=== PATIENT | female | born 1985 | race Hispanic/Latino ===

== ENCOUNTER → 2016-12-05 | Outpatient (CLI) | payer OTHER ==
--- NOTE | 2016-12-05 11:16 | ULT ---
ULTRASOUND THYROID: HISTORY: Thyroid nodule. COMPARISON: None. TECHNIQUE: Real-time sewell scale and color evaluation of the thyroid is performed with a linear ray transducer. FINDINGS: Background hepatic echotexture and vascularity is normal. Distance measures 0.24 cm AP dimension. The right lobe measures 4.6 x 2.7 x 2.1 cm. The left lobe measures 4.3 x 1.3 x 1.1 cm. Interpolar area right lobe is a 2.4 x 1.7 x 1.6 cm almost completely solid mass which is hyperechoic , wider than tall, at the lobular margin. No associated echogenic foci. IMPRESSION: TIRADS 4: Moderately suspicious. Fine needle aspiration of the dominant 2.4 x 1.7 x 1.6 cm almost completely solid hyperechoic wider than tall lobulated mass without associated echogenic foci. CODE T POS: LUIS
== END ==
LOC: ULT 09:00
PROVIDERS: ATTEND Obstetrics & Gynecology
DX: E04.1 Nontoxic single thyroid nodule (principal)
CPT/HCPCS: 76536

== ENCOUNTER 2016-12-07 16:30 | Inpatient (IN) | payer OTHER ==
--- NOTE | 2016-12-07 23:21 | HP ---
Planned date of surgery is 12/11/2016 HISTORY OF PRESENT ILLNESS: Ms. Pollock is a 31-year-old Latin-[place]oven[place] female, G1, P1 previous vagi nal delivery over 10 years ago, who had had onset of increasingly heavy menstrual periods. She was noted at that time to have a 4 cm anterior fundal uterine fibroid and underwent a robotic-assisted l aparoscopic myomectomy in 07/2016. At that time, she was noted to have a significant anemia preoper atively requiring some intraoperative blood transfusion and postop blood transfusion. The pathology at that time showed her to have an approximately 8 cm intramural fibroid with some degenerative ramirez nge. Postoperatively, she continued to have intermittent bleeding off and on and had been placed on Lyste da and oral contraceptives. She had a followup ultrasound that then showed her to have what appeare d to be about a 2.6 x 2.1 cm submucosal fibroid filling the lower uterine segment just above the end ocervical canal. She also had development of multiple other small fibroids throughout, the posterio r one and now other multiple ones in the fundus seen on ultrasound. Due to location of the submucos al fibroid in the lower uterine segment and just above the endocervical canal, I was very reluctant to proceed with a hysteroscopic resection. She did desire fertility, and therefore, has been referr ed to library technology instructor, Dr. Ulloa at [facility]. An MRI was ordered recently o n 12/05 showing her to have extensive leiomyoma of the uterus with intramural submucosal and subsero fallon fibroids with near obliteration of the endometrial cavity at the lower uterine segment. No adne xal masses were seen. Dr. Ulloa after review of the MRI did not feel that this patient was a hyst eroscopic resection candidate due to the fact she has multiple leiomyomas within the uterus and pote ntially frequent recurrence of fibroids. She does have significant anemia from the continued menorr hagia with recent hemoglobin of 5.7, hematocrit 21.6 as of 11/23/2016. She is clinically stable but is increasing her iron therapy to 3 times a day. In light of all these findings is now apparent th at the patient has agreed to proceed with definitive surgical therapy with robotic TLH removal of bi lateral fallopian tubes. Another concern she has noted development of a right thyroid nodule and re cently had ultrasound on 12/05 of the thyroid showing her to have a 2.4 x 1.7 x 1.6 cm almost comple tely solid mass there, which is worrisome that is moderately suspicious for a carcinoma. She has se en Dr. Cardona of ENT and he recommends to proceed with hysterectomy and then workup with biopsy after the hysterectomy procedure. PAST MEDICAL HISTORY: Negative. PAST SURGICAL HISTORY: Per HPI. SOCIAL HISTORY: Non-smoker, minimal alcohol use. She is . CURRENT MEDICATIONS: Anaprox, iron, Fergon 1 p.o. b.i.d. to t.i.d., Loestrin 120 mg daily. FAMILY HISTORY: Cousin with hysterectomy age 27. Breast cancer in an aunt. Father with diabetes, mother with coronary artery disease, sister with previous hysterectomy and severe endometriosis. ALLERGIES: AMOXICILLIN, PENICILLIN. PHYSICAL EXAMINATION: VITAL SIGNS: Blood pressure 110/60, pulse 88, respirations 18, height 60 inches. Weight 132 pounds . BMI 25.8. HEENT: Within normal limits. She has an approximately 2 cm right firm nodule in the right lobe of the thyroid noted. CHEST: Clear to auscultation. ABDOMEN: Soft, nontender, nondistended. Well-healed trocar sites noted. PELVIC: Vulva and vagina had no lesions. Cervix has no lesions, minimal vaginal bleeding noted. U terus approximately 8-week size. Adnexa nontender. ASSESSMENT: This is a 31-year-old Latin-[place]oven[place] female, G1, P1 with leiomyomatous uterine fibroid disease with previous and most recent fundal myoma with robotic myomectomy. The patient with recurr ence of fibroids with significant menorrhagia and anemia due to the chronic bleeding. Also, noted t o have some areas of pelvic endometriosis noted on recent surgery. MRI shows a submucosal fibroid w ithin the endometrial cavity just above the endocervical canal in the lower uterine segment with als o multiple other fibroids within the subserosal intermural sites. In light of this, the patient is not a candidate for further hysteroscopic myomectomy removal; and therefore, we will proceed with de finitive surgical therapy with Robotic TLH. The patient will be typed and crossed for 2 units and m ost likely we received some intraoperatively during the procedure. She also has a 2.5 cm right blayne d thyroid nodule which will be worked up further after hysterectomy procedure by Dr. Cardona of ENT.
[2016-12-08 16:14] VITALS: BMI 25.5
[2016-12-11] MEDS ORDERED: Midazolam HCl 2 mg/2 ml Vial ONE (06:48)
[2016-12-11] MEDS ORDERED: Fentanyl 100 MCG/2 ML VIAL ONE ×5 (06:48→10:55)
[2016-12-11] MEDS ORDERED: Bupivacaine HCl 0.5%/Epinephrine 1:200,000/PF 30 ml Vial ONE (07:04)
[2016-12-11] MEDS ORDERED: Clindamycin/D5W 900 mg/50 ml Premix Bag ONE (07:20)
[2016-12-11] MEDS ORDERED: Levofloxacin 500 mg/D5W 100 ml Premix Bag ONE (07:21)
[2016-12-11] MEDS ORDERED: Ketorolac Tromethamine 30 MG/ML VIAL ONE (07:38)
[2016-12-11] MEDS ORDERED: Glycopyrrolate 0.2 MG/ML 5 ML SYRINGE ONE (07:38)
[2016-12-11] MEDS ORDERED: Ondansetron HCl/PF 4 MG/2 ML Vial ONE (07:38)
[2016-12-11] MEDS ORDERED: Lidocaine 2% PF 10 ML AMP (For Epidural Use) ONE (07:38)
[2016-12-11] MEDS ORDERED: Propofol 200 MG/20 ML VIAL ONE (07:38)
[2016-12-11] MEDS ORDERED: Promethazine HCl 25 MG/ML VIAL IM PRN ×2 (09:39→11:50)
[2016-12-11] MEDS ORDERED: Ondansetron HCl/PF 4 MG/2 ML Vial IVP PRN ×2 (09:39→11:50)
[2016-12-11] MEDS ORDERED: Promethazine HCl 25 MG/ML VIAL SLOW IVP PRN (09:39)
[2016-12-11] MEDS ORDERED: Promethazine HCl 25 MG/ML VIAL ONE (10:20)
[2016-12-11] MEDS ORDERED: Bisacodyl 10 MG SUPP PR PRN (11:50)
[2016-12-11] MEDS ORDERED: traMADol HCl 50 MG TAB PO PRN (11:50)
[2016-12-11] MEDS ORDERED: diphenhydrAMINE HCl 25 MG CAP PO PRN (11:50)
[2016-12-11] MEDS ORDERED: Ketorolac Tromethamine 30 MG/ML VIAL IVP SCH (12:00)
[2016-12-11] MEDS: Simethicone Chewable 80 MG TAB PO PRN ×2 (12:44→21:55)
--- NOTE | 2016-12-11 14:34 | OP ---
PREOPERATIVE DIAGNOSES: 1. A 31-year-old female with symptomatic uterine fibroids with menorrhagia and signi ficant anemia. 2. Previous myomectomy with unresolved issues with menorrhagia with pelvic endometriosis noted. POSTOPERATIVE DIAGNOSES: 1. A 31-year-old female with symptomatic uterine fibroids with menorrhagia and sigin ficant anemia. 2. Previous myomectomy with unresolved issues with menorrhagia with pelvic endometriosis noted. PROCEDURES PERFORMED: 1. Robotic total laparoscopic hysterectomy, bilateral salpingectomy. 2. Ablation of endometriotic implants in the posterior cul-de-sac and pelvic sidewalls. SURGEON: Tatiana Rubin M.D. DIESEL ENGINE ASSEMBLER: Akhil Schmidt M.D. ANESTHESIA: General endotracheal. ESTIMATED BLOOD LOSS: 50 mL. COMPLICATIONS: None. COUNTS: Correct x2. ANTIBIOTICS: Levaquin and clindamycin per SCIP protocol. PATHOLOGY: Uterus, cervix, bilateral tubal segments, bilateral fallopian tubes. FINDINGS: 1. Filmy adhesions overlying the anterior uterus from previous myomectomy noted status post adhesio lysis. 2. Normal bilateral ovaries noted. 3. Scattered powder burn on endometriotic implants, mostly in the posterior cul-de-sac and few on t he pelvic sidewalls in uterosacral ligaments, status post ablation. 4. Clear urine present in Og catheter post-procedure. 5. Bilateral ureteral peristalsis visualized post procedure. DISPOSITION: To the recovery room stable. DESCRIPTION OF OPERATIVE PROCEDURE: The patient previously received informed consent in regards to surgery. She was taken back to the operating room where she received a general endotracheal anesthe tic agent without complications. She was then placed in the dorsal lithotomy position with the use of Chu stirrups. She was prepped and draped in usual sterile fashion. Og catheter was placed. At this time, a sidearm speculum was placed in the vagina. Anterior lip of cervix grasped with si ngle tooth tenaculum. Uterus sounded to 8 cm. A size 8 cm JAZLYN uterine manipulator with 4.0 cm cer vical cup was placed. Tenaculum and speculum were removed. Attention was then turned to the abdome n where perspective trocar sites were infiltrated with 0.5% Marcaine with epinephrine. A 12 mm infr aumbilical incision was made. Veress needle was entered into the abdominal cavity. Peritoneal pres sure was noted to be less than 5 mm. The abdomen was insufflated to patient pressure of 15, approxi mately 4.5 liters of carbon dioxide gas. Veress needle was then removed and a size 12 mm trocar was placed through the infraumbilical incision. Additional bilateral lower quadrant 8 mm trocars were placed under laparoscopic guidance along with right upper quadrant 11 mm trocar. The robot was then docked in usual fashion. The patient then placed in deep Trendelenburg prior to this. Once the ro bot had been docked, I proceeded to carry out the procedure from the robotic operative console with my assistance remained at the bedside. Uterus was elevated from the pelvis. The left fallopian tub e was grasped by my senior it assistant at the fimbria and a defect was made in the mesosalpinx with the monop olar scissors underneath the mesosalpinx. The left fallopian tube was then removed. Hemostasis was assured with bipolar fenestrated cautery on the pedicle sites. The left uterine ovarian ligament w as then coagulated with bipolar fenestrated device and transected. Serial coagulation of the broad ligament, hugging close to the uterus was carried out with the bipolar fenestrated device with excis ion with monopolar scissors until the left round ligament was reached. It was coagulated and transe cted in similar fashion. The anterior leaf of the broad ligament was entered and the vesicouterine peritoneum was dissected in a layering technique. Dissecting the bladder atraumatically past the ce rvical vaginal cuff, which was readily seen . The right uterine vessels were skeletonized and coagulated in the internal cervical os region. This was repeated on the right side of the uterus in similar fashion with the right fallopian tube b eing excised and removed in the right upper quadrant trocar senior it assistant site. The right uteroovarian ligament was coagulated and transected. Serial coagulation and the broad ligament was carried out u ntil the right round ligament was reached again being coagulated and transected. Again, the anterio r leaf of the broad ligament being entered and the vesicouterine peritoneum incised developing a edmund dder flap in a layering technique dropping this bladder atraumatically past the cervical vaginal ang le. Again, the right uterine vessels were skeletonized. At this time, a posterior colpotomy was th en carried out beginning from 6 to 3 and 6 to 9 o'clock fashion. Then the anterior colpotomy was ca rried out from 12 to 3 and 12 to 9 coagulating the uterine vessels medially as this proceeded for he mostasis. The uterus was then brought into the vaginal vault by the senior it assistant and the vaginal cuff was then coagulated any remaining active bleeding sites. A Stratafix suture was then brought up thr ough the right upper quadrant by my senior it assistant and then I proceeded to close the vaginal cuff startin g from the right vaginal angle towards the left vaginal angle and back towards the midline. A full- thickness closure with Stratafix suture. Hemostasis was confirmed. The cuff was elevated at this t jose with the suture and the posterior cul-de-sac endometriotic implants were then coagulated with bi polar fenestrated and also pelvic sidewalls 2 areas were coagulated and these were noted to be away from the ureter . Once this was accomplished, the pelvis again was irrigated and suctioned. H emostasis was confirmed. The suture needle was removed through the right upper quadrant port. Hemo stasis along the suture pedicle line was confirmed to be hemostatic. The bladder was draining clear urine. The excess carbon dioxide gas was then released, pedicle sites again remained hemostatic. The robot was undocked. Trocars were removed. A deep stitch of 0 Vicryl in a [id number] fashi on was placed in the fascial defect in the umbilicus region. Remainder of the trocar sites were niharika sed with 4-0 Monocryl subcuticular with Dermabond. There was no active bleeding from the vaginal cu ff noted vaginally. Clear urine was draining from the Og catheter. The patient was awakened fro m anesthesia and transferred to the recovery room in stable condition.
[2016-12-11] MEDS: Acetaminophen 1,000 MG in Premix Bag 1 BAG IVPB SCH ×2 (17:02→18:34)
[2016-12-11] MEDS: Lactated Ringer's 1,000 ML IV SCH ×2 (18:34→21:57)
[2016-12-11] MEDS: Ketorolac Tromethamine 30 MG/ML VIAL IVP SCH ×2 (18:41→20:59)
[2016-12-11] MEDS ORDERED: Fentanyl 5000 MCG/250 ML CADD IV PRN (20:32)
[2016-12-11] MEDS ORDERED: Naloxone HCl 0.4 mg/ml Vial IV PRN (20:32)
[2016-12-12] MEDS: Acetaminophen 1,000 MG in Premix Bag 1 BAG IVPB SCH ×3 (00:31→11:16)
[2016-12-12] MEDS: Ketorolac Tromethamine 30 MG/ML VIAL IVP SCH ×2 (03:39→09:38)
[2016-12-12 05:27] LABS: Hematocrit 20.3 % (36.0-47.0); Mean Platelet Volume 5.4 fL (7.4-10.4); Red Blood Cell (RBC) Count 3.43 mill/uL (4.20-5.40)
[2016-12-12] MEDS: Lactated Ringer's 1,000 ML IV SCH ×2 (06:18→11:15)
[2016-12-12] MEDS ORDERED: HYDROcodone/Acetaminophen 10/325 mg Tablet PO PRN ×2 (11:04)
[2016-12-12] MEDS ORDERED: Fentanyl 100 MCG/2 ML VIAL SLOW IVP PRN (11:05)
[2016-12-12 11:30] VITALS: BP 104/59; TEMP 98.4
[2016-12-12] MEDS: Simethicone Chewable 80 MG TAB PO PRN (13:33)
[2016-12-12] MEDS: traMADol HCl 50 MG TAB PO PRN ×2 (13:33→15:28)
--- NOTE | 2016-12-13 09:47 | DIS ---
DIAGNOSES: 1. Uterine fibroids. 2. Intractable menorrhagia due to fibroids. 3. 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 PROCEDURE PERFORMED: 1. Robotic total laparoscopic hysterectomy and bilateral salpingectomy 2. Transfusion 1 unit of packed red blood cells. SUMMARY OF HOSPITAL COURSE: Ms. Pollock is a 31-year-old female with previous parous 1 who initially desired preservation of fertility. She underwent a robotic myomectomy for large 8 c m uterine fibroid that was felt causing continued menorrhagia in 08/05/2016. The patient continued to have recurrent menorrhagia issues despite hormonal therapy, continued to be severely anemic with hemoglobins in the 5-6 range. She had an MRI of the uterus showing her to have a submucosal fibroid near the endocervical canal lower uterine segment and also multiple small fibroids throughout and w ith consultation Reproductive Endocrinology, Dr. Calle also felt that myomectomies for this wo uld be difficult and also was not indicated due to the multiple fibroid disease in this patient. Anny prater therefore underwent definitive surgical therapy with a robotic total laparoscopic hysterectomy and bilateral salpingectomy on 12/11/2016. Postoperatively, the patient did well. She did have a ricky tocrit of 20% on postop day #1 and did receive 1 unit of packed red cells to have her hemoglobin to be 7.7 and her hematocrit 26% post-transfusion. She had no orthostatic symptoms. Her vital signs w ere stable. There was no tachycardia or hypotension noted. Her baseline hemoglobin prior to surger y was 6.8. Pathology showed uterine leiomyoma and no other abnormalities noted. She was discharged the afternoon of postop day #1 after ambulating, voiding and tolerating regular diet. DISCHARGE MEDICATIONS: Ruth 10 mg/325 one q.4 hours and [id number] ibuprofen as directed. C ontinue iron therapy 325 mg, ferrous sulfate b.i.d. She has a followup 2 and 6 weeks postop. She will also have addressed in her postop period a 2.5 cm right thyroid nodule which she has been seen by Dr. Cardona and will undergo FNA biopsy during her postoperative recovery.
[2016-12-16] MEDS ORDERED: Ibuprofen 800 MG TAB PO SCH (21:00)
== END 2016-12-12 15:48 | disposition home or self-care (01) | DRG 743 ==
LOC: SURG A 12-11 05:50 → 3SE 12-11 10:58 → EEVIPCON 12-11 16:30
PROVIDERS: ADMIT Obstetrics & Gynecology; ATTEND Obstetrics & Gynecology
PROC: 0UT94ZZ Resection of Uterus, Percutaneous Endoscopic Approach (ICD-10-PCS; principal; 2016-12-11)
PROC: 0UB74ZZ Excision of Bilateral Fallopian Tubes, Percutaneous Endoscopic Approach (ICD-10-PCS; 2016-12-11)
PROC: 8E0W4CZ Robotic Assisted Procedure of Trunk Region, Percutaneous Endoscopic Approach (ICD-10-PCS; 2016-12-11)
PROC: 30233N1 Transfusion of Nonautologous Red Blood Cells into Peripheral Vein, Percutaneous Approach (ICD-10-PCS; 2016-12-12)
DX: D25.1 Intramural leiomyoma of uterus (principal); D50.0 Iron deficiency anemia secondary to blood loss (chronic); N92.1 Excessive and frequent menstruation with irregular cycle
CPT/HCPCS: 36415; 36430; 84702; 85027; 86850; 86900; 86901; 88307; A4216; J0131; J0670; J1885; J1956; J2001; J2250; J2270; J2405; J2550; J2704; J3010; J3490; P9016

== ENCOUNTER 2018-08-19 02:16 | Outpatient (CLI) | payer OTHER ==
[2018-08-19 16:51] LABS: #Eosinphils 0.2 thou/uL (0.0-0.7); #Lymphocytes 3.5 thou/uL (1.20-3.40); #Monocytes 0.7 thou/uL (0.11-0.59); #Neutrophils 4.1 thou/uL (1.40-6.50); %Basophils 0.5 % (0.0-1.0); %Eosinophils 2.8 % (0.0-10.0); %Neutrophils 47.7 % (42.0-75.0); Mean Corpuscular Hemoglobin 29.5 pg (27.0-31.0); Mean Corpuscular Volume 86.8 fL (78.0-98.0); Platelet Count 284 thou/uL (130-400); RBC Distribution Width 12.5 % (11.5-14.5); Red Blood Cell (RBC) Count 4.76 mill/uL (4.20-5.40); White Blood Cell (WBC) Count 8.5 thou/uL (4.8-10.8)
[2018-08-19 17:17] LABS: ALT (SGPT) 20 U/L (8-55); AST (SGOT) 18 U/L (5-34); Albumin 4.6 g/dL (3.5-5.0); Alkaline Phosphatase 48 U/L (40-150); Anion Gap 12 mmol/L (10-20); BUN (Urea Nitrogen) 21 mg/dL (7.0-18.7); Bilirubin, Total 0.4 mg/dL (0.2-1.2); Calc. Creatinine Clearance 0 mL/min (70-130); Calcium 9.8 mg/dL (7.8-10.44); Carbon Dioxide 26 mmol/L (22-29); Chloride 103 mmol/L (98-107); Estimated GFR-MDRD Greater than 90; Globulin 2.9 g/dL (2.4-3.5); Glucose 88 mg/dL (70-105); Potassium 4.2 mmol/L (3.5-5.1); Protein, Total 7.5 g/dL (6.0-8.3); Sodium 137 mmol/L (136-145)
== END 2018-08-19 02:17 | disposition home or self-care (01) ==
LOC: LABBT 02:16
PROVIDERS: ATTEND Specialist
DX: Z01.812 Encounter for preprocedural laboratory examination (principal); K80.20 Calculus of gallbladder without cholecystitis without obstruction
CPT/HCPCS: 80053; 85025

== ENCOUNTER 2018-08-29 06:09 | Day surgery (SDC) | payer OTHER ==
[2018-08-19 16:04] VITALS: BMI 26.5
[2018-08-29] MEDS ORDERED: Fentanyl 100 MCG/2 ML VIAL ONE ×3 (06:37→09:46)
[2018-08-29] MEDS ORDERED: Bupivacaine/Epinephrine 0.25% 30 ML VIAL ONE (06:55)
[2018-08-29] MEDS ORDERED: Ketorolac Tromethamine 30 MG/ML VIAL ONE (07:03)
[2018-08-29] MEDS ORDERED: Midazolam HCl 2 mg/2 ml Vial ONE (07:03)
[2018-08-29] MEDS ORDERED: Levofloxacin 500 mg/D5W 100 ml Premix Bag ONE (07:39)
[2018-08-29] MEDS ORDERED: Promethazine HCl 25 MG/ML VIAL ONE (08:46)
[2018-08-29] MEDS ORDERED: traMADol HCl 50 MG TAB ONE (10:52)
--- NOTE | 2018-08-29 11:14 | OP ---
DATE OF PROCEDURE: 08/29/2018 PREOPERATIVE DIAGNOSIS: Symptomatic cholelithiasis. POSTOPERATIVE DIAGNOSIS: Symptomatic cholelithiasis. PROCEDURE PERFORMED: Laparoscopic cholecystectomy. ANESTHESIA: General endotracheal. PLATE FURNACE OPERATOR: GIOVANI Paige. INDICATIONS: The patient is a 33-year-old female with symptoms referable to gallbladder. Ultrasound revealed cholelithiasis. She was taken to the operating room at this time for laparoscopic cholecystectomy. PROCEDURE IN DETAIL: Informed consent was obtained. The patient was taken to the operating room where general endotracheal anesthesia was obtained with the patient in the supine position. The abdomen was prepped with Betadine and draped in the usual sterile fashion. 0.25% Marcaine with epinephrine was infiltrated below the umbilicus and a 10 mm infraumbilical incision was created. A Veress needle was passed through this incision into the peritoneal cavity. A pneumoperitoneum was established using carbon dioxide up to a pressure of 15 mmHg. Local anesthetic was infiltrated and 3 additional 5 mm right upper quadrant incisions were created. Through the mid incision, a 5 mm port was passed into the peritoneal cavity. The camera was passed through this port and under direct vision, an 11 port was passed through the infraumbilical incision. The camera was replaced through this port, and under direct vision, 2 additional 5 mm ports were passed through the incisions already created. The gallbladder was grasped and retracted in a cephalad direction. Minimal adhesions were bluntly stripped away from the apex of the gallbladder, and the apex was retracted laterally and inferiorly. Careful dissection was carried out to the apex of the gallbladder to identify the cystic duct and cystic artery. These were each carefully dissected circumferentially. The duct was of normal caliber. Both the duct and the artery were divided between clips, leaving 2 on the side to remain within the abdomen. The gallbladder was then dissected out of the gallbladder fossa using electrocautery and removed through the infraumbilical port site. The fascia was closed with 0 Vicryl suture and a GraNee needle. The right upper quadrant was inspected and irrigated. All irrigant was aspirated. All ports and instruments were removed under direct vision. Pneumoperitoneum was carefully evacuated. Additional local anesthetic was infiltrated into each port site. The skin edges were approximated with 4-0 Monocryl subcuticular sutures, and Dermabond was placed externally. There were no complications. The patient tolerated the procedure well and was taken to the recovery room in stable condition. FINDINGS: The patient had no acute inflammatory changes involving her gallbladder. The duct was small and noninflamed. There was no blood loss during the course of the operation. Stones were identified within the gallbladder when it was extracted. There were no complications. The patient tolerated the procedure well and was taken to recovery room in stable condition. Job ID: [id number]
== END 2018-08-29 11:35 | disposition home or self-care (01) ==
LOC: SDC 06:09
PROVIDERS: ATTEND Specialist
PROC: 0FT44ZZ Resection of Gallbladder, Percutaneous Endoscopic Approach (ICD-10-PCS; principal; 2018-08-29)
DX: K80.10 Calculus of gallbladder with chronic cholecystitis without obstruction (principal); Z79.899 Other long term (current) drug therapy; Z88.1 Allergy status to other antibiotic agents
CPT/HCPCS: 88304; J0131; J0690; J1885; J1956; J2250; J2550; J3010

== ENCOUNTER 2024-01-15 11:56 | Outpatient (CLI) | payer OTHER | END 2024-01-15 11:57 | disposition home or self-care (01) | LOC: SCSRAD 11:56 | PROVIDERS: ATTEND Family Medicine | DX: R05.1 Acute cough (principal) | CPT/HCPCS: 71046 ==